=== PATIENT | male | born 1940 | race Caucasian/White ===

== ENCOUNTER 2020-12-12 19:58 | Inpatient (IN) | payer MEDICARE, OTHER ==
[2020-12-12 20:35] LABS: #Eosinphils 0.1 10x3/uL (0.0-0.5); #Monocytes 0.9 10x3/uL (0.0-1.1); #Neutrophils 11.5 10x3/uL (1.5-8.4); %Basophils 0.2 % (0.0-2.0); %Eosinophils 0.9 % (0.0-6.0); %Lymphocytes 4.6 % (18.0-47.0); %Monocytes 6.6 % (0.0-10.0); %Neutrophils 87.1 % (40.0-75.0); Hemoglobin 11.2 g/dL (13.5-17.5); Mean Corpuscular HGB CONC 31.3 g/dL (32.0-36.0); Mean Corpuscular Hemoglobin 30.2 pg (27.0-33.0); Mean Corpuscular Volume 96.5 fl (81.2-95.1); Mean Platelet Volume 9.8 fl (7.4-10.4); Platelet Count 177 10x3/uL (150-450); RBC Distribution Width 13.3 % (11.5-14.5); Red Blood Cell (RBC) Count 3.71 10x6/uL (4.32-5.72); White Blood Cell (WBC) Count 13.2 10x3/uL (3.5-10.5)
[2020-12-12 20:47] LABS: ALT (SGPT) 12 U/L (8-55); AST (SGOT) 14 U/L (5-34); Albumin 3.8 g/dL (3.4-4.8); Alkaline Phosphatase 68 U/L (40-110); Anion Gap 14 mmol/L (10-20); BUN (Urea Nitrogen) 26 mg/dL (8.4-25.7); Bilirubin, Total 0.5 mg/dL (0.2-1.2); Calc. Creatinine Clearance 0 mL/min (70-130); Calcium 8.8 mg/dL (7.8-10.44); Carbon Dioxide 23 mmol/L (23-31); Chloride 106 mmol/L (98-107); Globulin 2.4 g/dL (2.4-3.5); Glucose 141 mg/dL (83-110); Lipase 27 U/L (8-78); Protein, Total 6.2 g/dL (5.8-8.1); Sodium 138 mmol/L (136-145)
[2020-12-12] MEDS ORDERED: Mag-Al Plus 1200 MG/1200 MG/120 MG/30 ML UDCUP ONE (21:11)
[2020-12-12] MEDS ORDERED: Lidocaine Viscous Sol 2% 15 ml UD Cup ONE (21:12)
[2020-12-12 21:53] LABS: SARS-CoV-2 NAA Rapid Test Not Detected (NotDetected)
[2020-12-12] MEDS ORDERED: cefTRIAXone\\ROCEPHIN 2 GM VIAL ONE (22:31)
[2020-12-12] MEDS ORDERED: Nitroglycerin 0.4 MG TAB 1 EACH ONE (23:32)
[2020-12-12] MEDS ORDERED: Nitroglycerin 2% Ointment 1 INCH/1 GM Packet ONE (23:48)
[2020-12-13] MEDS ORDERED: Senokot S 8.6-50 MG TAB PO PRN (00:08)
[2020-12-13] MEDS ORDERED: Azithromycin 500 MG VIAL ONE (00:24)
[2020-12-13 00:50] VITALS: BMI 39.2
[2020-12-13] MEDS: Nitroglycerin 2% Ointment 1 INCH/1 GM Packet TOP SCH ×3 (05:00→23:33)
[2020-12-13 05:02] LABS: #Monocytes 0.1 10x3/uL (0.0-1.1); %Basophils 0.1 % (0.0-2.0); %Lymphocytes 3.7 % (18.0-47.0); %Monocytes 1.2 % (0.0-10.0); %Neutrophils 94.3 % (40.0-75.0); Hemoglobin 10.7 g/dL (13.5-17.5); Mean Corpuscular HGB CONC 32.3 g/dL (32.0-36.0); Mean Corpuscular Hemoglobin 30.6 pg (27.0-33.0); Mean Corpuscular Volume 94.6 fl (81.2-95.1); Mean Platelet Volume 10.2 fl (7.4-10.4); Platelet Count 169 10x3/uL (150-450); RBC Distribution Width 13.3 % (11.5-14.5); White Blood Cell (WBC) Count 9.5 10x3/uL (3.5-10.5)
[2020-12-13 05:13] LABS: Troponin I 0.026 ng/mL (< 0.028)
[2020-12-13 05:15] LABS: Anion Gap 15 mmol/L (10-20); BUN (Urea Nitrogen) 23 mg/dL (8.4-25.7); Calc. Creatinine Clearance 73 mL/min (70-130); Calcium 8.6 mg/dL (7.8-10.44); Carbon Dioxide 21 mmol/L (23-31); Chloride 109 mmol/L (98-107); Glucose 204 mg/dL (83-110); Magnesium 2.2 mg/dL (1.6-2.6); Potassium 4.8 mmol/L (3.5-5.1); Sodium 140 mmol/L (136-145)
[2020-12-13] MEDS: Arformoterol 15 MCG/2 ML NEB NEB SCH ×2 (06:45→19:40)
[2020-12-13] MEDS: Budesonide 0.5 MG/2 ML NEB NEB SCH ×2 (06:53→19:40)
[2020-12-13] MEDS: Aspirin 81 mg Enteric Coated Tablet PO SCH (08:38)
[2020-12-13] MEDS: Carvedilol 3.125 MG TAB PO SCH ×2 (08:38→17:23)
[2020-12-13] MEDS: hydrALAZINE 25 MG TAB PO SCH ×3 (08:38→20:19)
[2020-12-13] MEDS: Enoxaparin Sodium 40 MG/0.4 ML SYRINGE SC SCH (08:38)
[2020-12-13] MEDS: Furosemide 40 MG TAB PO SCH (08:38)
[2020-12-13] MEDS ORDERED: Lisinopril 5 MG TAB PO SCH (09:00)
[2020-12-13] MEDS ORDERED: Cepastat Lozenges 1 LOZ PO PRN (11:40)
[2020-12-13] MEDS ORDERED: Atorvastatin Calcium 40 MG TAB PO SCH (21:00)
[2020-12-13] MEDS ORDERED: Azithromycin 500 MG in Sodium Chloride 0.9% 250 ML 250 ML IVPB SCH (22:00)
[2020-12-13] MEDS ORDERED: cefTRIAXone\\ROCEPHIN 2 GM in Sodium Chloride 0.9% 100 ML IVPB SCH (23:00)
[2020-12-14] MEDS: Nitroglycerin 2% Ointment 1 INCH/1 GM Packet TOP SCH ×2 (06:15→14:57)
[2020-12-14] MEDS: Budesonide 0.5 MG/2 ML NEB NEB SCH (06:40)
[2020-12-14] MEDS: Arformoterol 15 MCG/2 ML NEB NEB SCH (06:50)
[2020-12-14] MEDS: Furosemide 40 MG TAB PO SCH (07:06)
[2020-12-14] MEDS ORDERED: Ketoconazole 2% Cream 15 gm Tube TOP PRN (08:00)
[2020-12-14] MEDS ORDERED: Acetaminophen 325 MG TAB PO PRN (08:02)
[2020-12-14 08:11] VITALS: TEMP 98.6
[2020-12-14 08:20] LABS: Anion Gap 13 mmol/L (10-20); BUN (Urea Nitrogen) 30 mg/dL (8.4-25.7); Calc. Creatinine Clearance 77 mL/min (70-130); Calcium 8.8 mg/dL (7.8-10.44); Carbon Dioxide 23 mmol/L (23-31); Chloride 110 mmol/L (98-107); Glucose 120 mg/dL (83-110); Potassium 4.9 mmol/L (3.5-5.1); Sodium 141 mmol/L (136-145)
[2020-12-14] MEDS ORDERED: FLUTICASONE IH SCH (09:00)
[2020-12-14] MEDS ORDERED: Vit A,C & E/Lutein/Minerals Tablet PO SCH (09:00)
[2020-12-14] MEDS ORDERED: Clopidogrel Bisulfate 75 MG TAB PO SCH (09:00)
[2020-12-14] MEDS ORDERED: [UNRECOGNIZED DRUG - OTHER] IH SCH (09:00)
[2020-12-14] MEDS ORDERED: Famotidine 20 MG TAB PO SCH (09:00)
[2020-12-14] MEDS ORDERED: Lisinopril 20 MG TAB PO SCH (09:00)
[2020-12-14] MEDS ORDERED: Ascorbic Acid 500 mg Chewable Tablet PO SCH (09:00)
[2020-12-14] MEDS ORDERED: Verapamil 80 MG TAB PO SCH ×2 (09:00→21:00)
[2020-12-14] MEDS ORDERED: SALMETEROL IH SCH (09:00)
[2020-12-14] MEDS: Aspirin 81 mg Enteric Coated Tablet PO SCH (09:36)
[2020-12-14] MEDS: hydrALAZINE 25 MG TAB PO SCH ×2 (09:37→15:05)
[2020-12-14] MEDS: Carvedilol 3.125 MG TAB PO SCH (09:37)
[2020-12-14] MEDS: Enoxaparin Sodium 40 MG/0.4 ML SYRINGE SC SCH (09:44)
[2020-12-14 12:34] VITALS: BP 143/66
[2020-12-14] MEDS ORDERED: Pravastatin Sodium 20 MG TAB PO SCH (21:00)
[2020-12-15] MEDS ORDERED: Furosemide 20 MG TAB PO SCH (09:00)
== END 2020-12-14 16:56 | disposition home health service (06) | DRG 191 ==
LOC: CSHERS 19:58 → CSHTELE 23:53 → UNDOADMIN 23:53 → CSHTELE 12-13 00:08 → UNDODISIN 12-14 16:56
PROVIDERS: ADMIT Family Medicine; ATTEND Internal Medicine
PROC: 5A09357 Assistance with Respiratory Ventilation, Less than 24 Consecutive Hours, Continuous Positive Airway Pressure (ICD-10-PCS; principal; 2020-12-13)
DX: J44.1 Chronic obstructive pulmonary disease with (acute) exacerbation (principal); J96.11 Chronic respiratory failure with hypoxia; I25.10 Atherosclerotic heart disease of native coronary artery without angina pectoris; I12.9 Hypertensive chronic kidney disease with stage 1 through stage 4 chronic kidney disease, or unspecified chronic kidney disease; G47.33 Obstructive sleep apnea (adult) (pediatric); I51.7 Cardiomegaly; E74.39 Other disorders of intestinal carbohydrate absorption; E66.9 Obesity, unspecified; N18.31 Chronic kidney disease, stage 3a; Z20.822 Contact with and (suspected) exposure to COVID-19; Z88.1 Allergy status to other antibiotic agents; Z88.2 Allergy status to sulfonamides; Z79.82 Long term (current) use of aspirin; Z79.899 Other long term (current) drug therapy; I25.2 Old myocardial infarction; Z99.81 Dependence on supplemental oxygen; Z95.5 Presence of coronary angioplasty implant and graft; Z87.891 Personal history of nicotine dependence; Z68.39 Body mass index [BMI] 39.0-39.9, adult
CPT/HCPCS: 36415; 71045; 74177; 80048; 80053; 83690; 83735; 83880; 84145; 84484; 85025; 87040; 93005; 93010; 93306; 94640; 94760; J0456; J0696; J1650; J3490; J7050; J7620; J7626; U0002

== ENCOUNTER 2021-01-09 09:10 | Inpatient (IN) | payer MEDICARE ==
[2021-01-09] MEDS ORDERED: Cefepime 2 GM VIAL ONE (09:58)
[2021-01-09] MEDS ORDERED: Vancomycin 1.5 GRAM/300 ML BAG 1.5 GM in Premix Bag 1 BAG IVPB SCH (10:00)
[2021-01-09 10:05] LABS: #Eosinphils 0.2 10x3/uL (0.0-0.5); #Monocytes 0.7 10x3/uL (0.0-1.1); #Neutrophils 4.4 10x3/uL (1.5-8.4); %Basophils 0.3 % (0.0-2.0); %Eosinophils 2.7 % (0.0-6.0); %Lymphocytes 11.8 % (18.0-47.0); %Monocytes 10.9 % (0.0-10.0); %Neutrophils 73.6 % (40.0-75.0); Hemoglobin 10.3 g/dL (13.5-17.5); Mean Corpuscular Hemoglobin 30.7 pg (27.0-33.0); Mean Corpuscular Volume 96.1 fl (81.2-95.1); Mean Platelet Volume 9.5 fl (7.4-10.4); Platelet Count 147 10x3/uL (150-450); RBC Distribution Width 13.8 % (11.5-14.5); Red Blood Cell (RBC) Count 3.35 10x6/uL (4.32-5.72)
[2021-01-09 10:18] LABS: ALT (SGPT) 17 U/L (8-55); AST (SGOT) 14 U/L (5-34); Albumin 3.6 g/dL (3.4-4.8); Alkaline Phosphatase 82 U/L (40-110); Anion Gap 12 mmol/L (10-20); BUN (Urea Nitrogen) 23 mg/dL (8.4-25.7); Bilirubin, Total 0.3 mg/dL (0.2-1.2); CK (CPK) 66 U/L (30-200); Calc. Creatinine Clearance 0 mL/min (70-130); Calcium 8.8 mg/dL (7.8-10.44); Carbon Dioxide 24 mmol/L (23-31); Chloride 108 mmol/L (98-107); Globulin 2.2 g/dL (2.4-3.5); Glucose 135 mg/dL (83-110); Potassium 4.4 mmol/L (3.5-5.1); Protein, Total 5.8 g/dL (5.8-8.1); Sodium 140 mmol/L (136-145)
[2021-01-09 10:25] LABS: SARS-CoV-2 NAA Rapid Test Not Detected (NotDetected)
[2021-01-09] MEDS ORDERED: Senokot S 8.6-50 MG TAB PO PRN (11:13)
[2021-01-09] MEDS ORDERED: Acetaminophen 325 MG TAB PO PRN (11:13)
[2021-01-09 11:45] LABS: Bilirubin Neg (Negative); Blood, Urine Negative (Negative); Clarity Clear (Clear); Glucose, Urine (Dipstick) Normal (Negative); Ketone, Urine Negative (Negative); Leukocyte 100 (Negative); Nitrite Negative (Negative); Protein, Urine (Dipstick) 30 mg/dl (Neg-Trace); Urobilinogen Normal mg/dL (Less than 2)
[2021-01-09 12:08] LABS: RBC/HPF 0-3 HPF (0-3)
[2021-01-09 12:09] LABS: Bacteria/HPF None Seen HPF (None Seen); Squamous Epithelial 0-3 HPF (0-3)
[2021-01-09] MEDS ORDERED: FLU VACC QS2021-22(65YR UP)/PF 240 MCG/0.7 ML SYRINGE IM ONE (16:30)
[2021-01-09] MEDS: Mometasone/Formoterol 200/5 60 PUFF INH SCH (19:05)
[2021-01-09] MEDS: Verapamil 80 MG TAB PO SCH (20:58)
[2021-01-09] MEDS: Lisinopril 20 MG TAB PO SCH (20:59)
[2021-01-09] MEDS: hydrALAZINE 10 MG TAB PO SCH (20:59)
[2021-01-09] MEDS ORDERED: Clobetasol 0.05% Cream 15 gm Tube TOP SCH (21:00)
[2021-01-09] MEDS: Clobetasol 0.05% Cream 15 gm Tube TOP SCH (21:00)
[2021-01-10 03:54] LABS: Anion Gap 13 mmol/L (10-20); BUN (Urea Nitrogen) 20 mg/dL (8.4-25.7); Calc. Creatinine Clearance 179 mL/min (70-130); Calcium 8.7 mg/dL (7.8-10.44); Carbon Dioxide 21 mmol/L (23-31); Chloride 111 mmol/L (98-107); Glucose 130 mg/dL (83-110); Potassium 4.4 mmol/L (3.5-5.1); Sodium 141 mmol/L (136-145)
[2021-01-10 05:38] LABS: Hemoglobin 9.1 g/dL (13.5-17.5); Mean Corpuscular HGB CONC 32.3 g/dL (32.0-36.0); Mean Corpuscular Volume 95.9 fl (81.2-95.1); Mean Platelet Volume 9.6 fl (7.4-10.4); Platelet Count 148 10x3/uL (150-450); RBC Distribution Width 13.9 % (11.5-14.5); Red Blood Cell (RBC) Count 2.94 10x6/uL (4.32-5.72); White Blood Cell (WBC) Count 4.7 10x3/uL (3.5-10.5)
[2021-01-10 06:31] LABS: Eosinophils 4 % (0-10); Lymphocytes 12 % (21-51); Monocytes 17 % (0-10); Neutrophil 66 % (42-75)
[2021-01-10 06:32] LABS: Platelet Morphology Comment Appears Adequate; RBC Morphology Normal
[2021-01-10 06:41] LABS: MDiff Complete? YES
[2021-01-10] MEDS: Mometasone/Formoterol 200/5 60 PUFF INH SCH ×2 (07:55→19:14)
[2021-01-10] MEDS: Lisinopril 20 MG TAB PO SCH ×2 (08:05→20:37)
[2021-01-10] MEDS: Furosemide 40 MG TAB PO SCH ×2 (08:05→08:06)
[2021-01-10] MEDS: hydrALAZINE 10 MG TAB PO SCH ×3 (08:05→20:34)
[2021-01-10] MEDS: Verapamil 80 MG TAB PO SCH ×3 (08:05→20:36)
[2021-01-10] MEDS: Enoxaparin Sodium 40 MG/0.4 ML SYRINGE SC SCH (08:05)
[2021-01-10] MEDS: Clobetasol 0.05% Cream 15 gm Tube TOP SCH (08:05)
[2021-01-10 10:11] VITALS: BMI 40.9
[2021-01-10] MEDS: CEFAZOLIN 2 GM in Premix Bag 1 BAG IVPB SCH ×2 (11:27→18:38)
[2021-01-11 01:20] LABS: Hemoglobin A1c 5.8 % (4.0-6.0)
[2021-01-11] MEDS: CEFAZOLIN 2 GM in Premix Bag 1 BAG IVPB SCH (03:50)
[2021-01-11 05:14] LABS: Phosphorus 2.8 mg/dL (2.3-4.7)
[2021-01-11 05:17] LABS: Anion Gap 11 mmol/L (10-20); BUN (Urea Nitrogen) 21 mg/dL (8.4-25.7); Calc. Creatinine Clearance 73 mL/min (70-130); Calcium 8.6 mg/dL (7.8-10.44); Carbon Dioxide 25 mmol/L (23-31); Chloride 109 mmol/L (98-107); Glucose 124 mg/dL (83-110); Potassium 3.9 mmol/L (3.5-5.1); Sodium 141 mmol/L (136-145)
[2021-01-11 05:27] LABS: Hemoglobin 8.7 g/dL (13.5-17.5); Mean Corpuscular HGB CONC 31.8 g/dL (32.0-36.0); Mean Corpuscular Hemoglobin 30.9 pg (27.0-33.0); Mean Corpuscular Volume 97.2 fl (81.2-95.1); Mean Platelet Volume 9.9 fl (7.4-10.4); Platelet Count 152 10x3/uL (150-450); RBC Distribution Width 13.7 % (11.5-14.5); Red Blood Cell (RBC) Count 2.82 10x6/uL (4.32-5.72)
[2021-01-11 05:28] LABS: MDiff Complete? YES
[2021-01-11 05:58] LABS: Eosinophils 4 % (0-10); Lymphocytes 21 % (21-51); Monocytes 18 % (0-10); Neutrophil 57 % (42-75)
[2021-01-11 05:59] LABS: Hypochromia MODERATE=16-30 cells (100X) (0-5/hpf); Microcytosis SLIGHT = 6-15 cells (100X) (0-5/hpf); Platelet Morphology Comment Appears Adequate
[2021-01-11] MEDS: Mometasone/Formoterol 200/5 60 PUFF INH SCH (07:34)
[2021-01-11 08:06] VITALS: BP 175/74; TEMP 98.4
[2021-01-11] MEDS: hydrALAZINE 10 MG TAB PO SCH (08:46)
[2021-01-11] MEDS: Verapamil 80 MG TAB PO SCH (08:46)
[2021-01-11] MEDS: Enoxaparin Sodium 40 MG/0.4 ML SYRINGE SC SCH (08:46)
[2021-01-11] MEDS: Lisinopril 20 MG TAB PO SCH (08:46)
[2021-01-11 11:25] LABS: Cardiac Risk 2.7 (Less than 4.5)
== END 2021-01-11 10:22 | disposition home or self-care (01) | DRG 603 ==
LOC: CSHERS 09:10 → CSHTELE 11:40 → INTOOBSV 11:40 → OBSVTOIN 01-10 19:03
PROVIDERS: ADMIT Family Medicine; ATTEND Family Medicine
DX: L03.116 Cellulitis of left lower limb (principal); I13.0 Hypertensive heart and chronic kidney disease with heart failure and stage 1 through stage 4 chronic kidney disease, or unspecified chronic kidney disease; I50.32 Chronic diastolic (congestive) heart failure; Z68.41 Body mass index [BMI] 40.0-44.9, adult; Z20.822 Contact with and (suspected) exposure to COVID-19; L03.115 Cellulitis of right lower limb; J44.9 Chronic obstructive pulmonary disease, unspecified; N18.32 Chronic kidney disease, stage 3b; I87.2 Venous insufficiency (chronic) (peripheral); A46 Erysipelas; E66.01 Morbid (severe) obesity due to excess calories; Z88.2 Allergy status to sulfonamides; Z88.1 Allergy status to other antibiotic agents; Z79.82 Long term (current) use of aspirin; Z79.899 Other long term (current) drug therapy; Z79.02 Long term (current) use of antithrombotics/antiplatelets; I25.2 Old myocardial infarction; Z95.5 Presence of coronary angioplasty implant and graft; Z87.891 Personal history of nicotine dependence
CPT/HCPCS: 36415; 36416; 71045; 80048; 80053; 80061; 81003; 81015; 82550; 83036; 83605; 83735; 83880; 84100; 84484; 85025; 86140; 87040; 87086; 93005; 94640; 94664; 94760; 96365; 96367; 96372; 96375; G0378; J0690; J0692; J1650; J3370; J7620; U0002

== ENCOUNTER 2021-10-04 13:41 | Emergency (ER) | payer OTHER ==
[2021-10-04 14:24] LABS: Bilirubin Neg (Negative); Blood, Urine Negative (Negative); Clarity Clear (Clear); Glucose, Urine (Dipstick) Normal (Negative); Ketone, Urine Negative (Negative); Leukocyte 100 (Negative); Nitrite Negative (Negative); Protein, Urine (Dipstick) 30 mg/dl (Neg-Trace); Specific Gravity, Urine 1.005 (1.002-1.036); Urobilinogen Normal mg/dL (Less than 2); pH, Urine 6.5 (5.0-9.0)
[2021-10-04 14:30] LABS: Bacteria/HPF Rare-Few HPF (None Seen); RBC/HPF 0-3 HPF (0-3)
[2021-10-04 14:31] LABS: #Eosinphils 0.2 10x3/uL (0.0-0.5); #Monocytes 1.2 10x3/uL (0.0-1.1); #Neutrophils 6.6 10x3/uL (1.5-8.4); %Basophils 0.3 % (0.0-2.0); %Eosinophils 1.6 % (0.0-6.0); %Lymphocytes 15.5 % (18.0-47.0); %Monocytes 12.5 % (0.0-10.0); Hemoglobin 10.5 g/dL (13.5-17.5); Mean Corpuscular HGB CONC 32.1 g/dL (32.0-36.0); Mean Corpuscular Hemoglobin 30.7 pg (27.0-33.0); Mean Corpuscular Volume 95.6 fl (81.2-95.1); Mean Platelet Volume 9.6 fl (7.4-10.4); Platelet Count 184 10x3/uL (150-450); RBC Distribution Width 13.3 % (11.5-14.5); Red Blood Cell (RBC) Count 3.42 10x6/uL (4.32-5.72); White Blood Cell (WBC) Count 9.5 10x3/uL (3.5-10.5)
[2021-10-04 14:43] LABS: ALT (SGPT) 14 U/L (8-55); AST (SGOT) 12 U/L (5-34); Albumin 3.7 g/dL (3.4-4.8); Alkaline Phosphatase 79 U/L (40-110); Anion Gap 14 mmol/L (10-20); BUN (Urea Nitrogen) 42 mg/dL (8.4-25.7); Bilirubin, Total 0.3 mg/dL (0.2-1.2); Calc. Creatinine Clearance 0 mL/min (70-130); Calcium 10.3 mg/dL (7.8-10.44); Carbon Dioxide 25 mmol/L (23-31); Chloride 103 mmol/L (98-107); Estimated GFR 36; Globulin 3.2 g/dL (2.4-3.5); Glucose 116 mg/dL (83-110); Magnesium 2.8 mg/dL (1.6-2.6); Potassium 4.8 mmol/L (3.5-5.1); Protein, Total 6.9 g/dL (5.8-8.1); Sodium 137 mmol/L (136-145)
== END 2021-10-04 17:01 | disposition home or self-care (01) ==
LOC: CSHERS 13:41
DX: J44.1 Chronic obstructive pulmonary disease with (acute) exacerbation (principal); I51.7 Cardiomegaly; R60.0 Localized edema; E11.22 Type 2 diabetes mellitus with diabetic chronic kidney disease; I12.9 Hypertensive chronic kidney disease with stage 1 through stage 4 chronic kidney disease, or unspecified chronic kidney disease; N18.9 Chronic kidney disease, unspecified; Z87.891 Personal history of nicotine dependence
CPT/HCPCS: 36415; 71045; 80053; 81003; 81015; 83605; 83735; 84443; 84484; 85025; 93005; 94760

== ENCOUNTER 2021-12-03 11:32 | Emergency (ER) | payer OTHER ==
[2021-12-03 12:10] LABS: Hemoglobin 10.5 g/dL (13.5-17.5); Mean Corpuscular HGB CONC 32.9 g/dL (32.0-36.0); Mean Corpuscular Hemoglobin 31.3 pg (27.0-33.0); Mean Corpuscular Volume 94.9 fl (81.2-95.1); Platelet Count 201 10x3/uL (150-450); RBC Distribution Width 12.7 % (11.5-14.5); Red Blood Cell (RBC) Count 3.36 10x6/uL (4.32-5.72)
[2021-12-03 12:11] LABS: MDiff Complete? YES; Manual Diff?? YES
[2021-12-03 12:27] LABS: Eosinophils 2 % (0-10); Lymphocytes 14 % (21-51); Monocytes 11 % (0-10); Neutrophil 71 % (42-75); Reactive Lymphocytes 2 % (0-10)
[2021-12-03 12:28] LABS: Platelet Morphology Comment Appears Adequate
[2021-12-03 12:30] LABS: ALT (SGPT) 7 U/L (8-55); AST (SGOT) 13 U/L (5-34); Albumin 3.9 g/dL (3.4-4.8); Alkaline Phosphatase 88 U/L (40-110); Anion Gap 13 mmol/L (10-20); BUN (Urea Nitrogen) 38 mg/dL (8.4-25.7); Bilirubin, Total 0.3 mg/dL (0.2-1.2); Calc. Creatinine Clearance 0 mL/min (70-130); Calcium 9.7 mg/dL (7.8-10.44); Carbon Dioxide 24 mmol/L (23-31); Chloride 104 mmol/L (98-107); Estimated GFR 38; Globulin 2.7 g/dL (2.4-3.5); Glucose 125 mg/dL (83-110); Potassium 4.6 mmol/L (3.5-5.1); Protein, Total 6.6 g/dL (5.8-8.1); Sodium 136 mmol/L (136-145)
== END 2021-12-03 14:51 | disposition home or self-care (01) ==
LOC: CSHERS 11:32
DX: R00.1 Bradycardia, unspecified (principal); I44.0 Atrioventricular block, first degree; I45.4 Nonspecific intraventricular block; I10 Essential (primary) hypertension; E11.9 Type 2 diabetes mellitus without complications; J44.9 Chronic obstructive pulmonary disease, unspecified; E66.9 Obesity, unspecified; Z87.891 Personal history of nicotine dependence; Z79.82 Long term (current) use of aspirin; Z79.899 Other long term (current) drug therapy
CPT/HCPCS: 36415; 71045; 80053; 83880; 84484; 85025; 93005; 94760

== ENCOUNTER 2022-06-17 09:37 | Emergency (ER) | payer OTHER ==
[2022-06-17] MEDS ORDERED: Morphine 4 MG/ML VIAL ONE (10:39)
== END 2022-06-17 10:55 | disposition home or self-care (01) ==
LOC: CSHERS 09:37
DX: M25.561 Pain in right knee (principal); E11.9 Type 2 diabetes mellitus without complications; I10 Essential (primary) hypertension; J44.9 Chronic obstructive pulmonary disease, unspecified; Z87.891 Personal history of nicotine dependence
CPT/HCPCS: 93005; 93010; 96372; 99283; J2270

== ENCOUNTER 2022-07-29 10:28 | Emergency (ER) | payer OTHER ==
[2022-07-29 11:13] LABS: Bilirubin Neg (Negative); Blood, Urine 10 (Negative); Clarity Clear (Clear); Glucose, Urine (Dipstick) Normal (Negative); Ketone, Urine Negative (Negative); Leukocyte 25 (Negative); Nitrite Negative (Negative); Protein, Urine (Dipstick) 30 mg/dl (Neg-Trace); Specific Gravity, Urine 1.015 (1.005-1.030); Urobilinogen Normal mg/dL (Less than 2)
[2022-07-29 11:27] LABS: #Eosinphils 0.2 10x3/uL (0.0-0.5); #Neutrophils 5.6 10x3/uL (1.5-8.4); %Basophils 0.4 % (0.0-2.0); %Eosinophils 2.8 % (0.0-6.0); %Lymphocytes 14.6 % (18.0-47.0); %Monocytes 11.9 % (0.0-10.0); %Neutrophils 69.3 % (40.0-75.0); Hemoglobin 11.7 g/dL (13.5-17.5); Mean Corpuscular HGB CONC 32.7 g/dL (32.0-36.0); Mean Corpuscular Hemoglobin 30.2 pg (27.0-33.0); Mean Corpuscular Volume 92.3 fl (81.2-95.1); Mean Platelet Volume 9.7 fl (7.4-10.4); Platelet Count 238 10x3/uL (150-450); RBC Distribution Width 13.8 % (11.5-14.5); Red Blood Cell (RBC) Count 3.88 10x6/uL (4.32-5.72); White Blood Cell (WBC) Count 8.1 10x3/uL (3.5-10.5)
[2022-07-29] MEDS ORDERED: Furosemide 40 MG/4 ML VIAL ONE (11:32)
[2022-07-29 11:35] LABS: CAUTI Indications for Culture Dysuria,urgency,freq
[2022-07-29 11:36] LABS: Bacteria/HPF None Seen HPF (None Seen); Renal Epithelial 0-3 HPF (None Seen); Squamous Epithelial None Seen HPF (0-3)
[2022-07-29 11:37] LABS: Urine Culture Reflex No No
[2022-07-29 11:45] LABS: ALT (SGPT) 13 U/L (8-55); Albumin 3.9 g/dL (3.4-4.8); Alkaline Phosphatase 97 U/L (40-110); Anion Gap 14 mmol/L (10-20); BUN (Urea Nitrogen) 31 mg/dL (8.4-25.7); Bilirubin, Total 0.3 mg/dL (0.2-1.2); Calc. Creatinine Clearance 0 mL/min (70-130); Calcium 10.8 mg/dL (7.8-10.44); Carbon Dioxide 25 mmol/L (23-31); Chloride 104 mmol/L (98-107); Estimated GFR 50; Globulin 3.7 g/dL (2.4-3.5); Glucose 106 mg/dL (83-110); Potassium 4.4 mmol/L (3.5-5.1); Protein, Total 7.6 g/dL (5.8-8.1); Sodium 139 mmol/L (136-145)
[2022-07-29 11:46] LABS: AST (SGOT) 22 U/L (5-34)
== END 2022-07-29 12:21 | disposition home or self-care (01) ==
LOC: CSHERS 10:28
DX: R60.9 Edema, unspecified (principal); I11.0 Hypertensive heart disease with heart failure; I50.9 Heart failure, unspecified; E11.9 Type 2 diabetes mellitus without complications; E66.9 Obesity, unspecified; J44.9 Chronic obstructive pulmonary disease, unspecified; Z87.891 Personal history of nicotine dependence; Z79.899 Other long term (current) drug therapy
CPT/HCPCS: 71045; 80053; 81001; 83880; 84484; 85025; 93005; 96374; J1940

== ENCOUNTER 2022-10-21 08:53 | Inpatient (IN) | payer MEDICARE, OTHER ==
[2022-10-21] MEDS ORDERED: fentaNYL 50 mcg/mL 1 mL Vial ONE ×2 (09:30→12:00)
[2022-10-21] MEDS ORDERED: Ondansetron PF 4 MG/2 ML Vial ONE (09:31)
[2022-10-21 09:58] LABS: #Monocytes 1.3 10x3/uL (0.0-1.1); #Neutrophils 18.5 10x3/uL (1.5-8.4); %Basophils 0.1 % (0.0-2.0); %Lymphocytes 2.7 % (18.0-47.0); %Monocytes 6.4 % (0.0-10.0); %Neutrophils 89.8 % (40.0-75.0); Hematocrit 32.6 % (38.8-50.0); Hemoglobin 10.7 g/dL (13.5-17.5); Mean Corpuscular HGB CONC 32.8 g/dL (32.0-36.0); Mean Corpuscular Hemoglobin 30.5 pg (27.0-33.0); Mean Corpuscular Volume 92.9 fl (81.2-95.1); Mean Platelet Volume 9.5 fl (7.4-10.4); Platelet Count 161 10x3/uL (150-450); RBC Distribution Width 13.5 % (11.5-14.5); Red Blood Cell (RBC) Count 3.51 10x6/uL (4.32-5.72); White Blood Cell (WBC) Count 20.6 10x3/uL (3.5-10.5)
[2022-10-21 10:27] LABS: ALT (SGPT) 11 U/L (8-55); AST (SGOT) 14 U/L (5-34); Albumin 3.6 g/dL (3.4-4.8); Alkaline Phosphatase 65 U/L (40-110); Anion Gap 17 mmol/L (10-20); BUN (Urea Nitrogen) 73 mg/dL (8.4-25.7); Bilirubin, Total 0.8 mg/dL (0.2-1.2); Calc. Creatinine Clearance 0 mL/min (70-130); Carbon Dioxide 23 mmol/L (23-31); Chloride 100 mmol/L (98-107); Estimated GFR 20; Globulin 2.5 g/dL (2.4-3.5); Glucose 182 mg/dL (83-110); Lipase 25 U/L (8-78); Potassium 4.9 mmol/L (3.5-5.1); Protein, Total 6.1 g/dL (5.8-8.1); Sodium 135 mmol/L (136-145)
[2022-10-21 10:30] LABS: Troponin I 0.025 ng/mL (< 0.028)
[2022-10-21 11:26] LABS: Bilirubin Neg (Negative); Blood, Urine 250 (Negative); Clarity Cloudy (Clear); Glucose, Urine (Dipstick) Normal (Negative); Ketone, Urine Negative (Negative); Leukocyte 500 (Negative); Nitrite Positive (Negative); Protein, Urine (Dipstick) 100 mg/dl (Neg-Trace); Specific Gravity, Urine 1.015 (1.005-1.030); Urobilinogen Normal mg/dL (Less than 2)
[2022-10-21] MEDS ORDERED: cefTRIAXone (ROCEPHIN) 2 GM VIAL ONE (11:39)
[2022-10-21 11:42] LABS: Bacteria/HPF 4+ HPF (None Seen); CAUTI Indications for Culture Dysuria,urgency,freq; RBC/HPF Greater than 50 HPF (0-3); Transitional Epithelial 0-3 HPF (None Seen); WBC/HPF Greater Than 50 HPF (0-3)
[2022-10-21 11:43] LABS: Urine Culture Reflex Yes Yes
[2022-10-21] MEDS ORDERED: Dextrose 50% Abboject 50 ML SYRINGE SLOW IVP PRN (12:14)
[2022-10-21] MEDS ORDERED: Guaifenesin DM 100-10/5 ML UDCUP PO PRN (12:14)
[2022-10-21] MEDS ORDERED: Ondansetron PF 4 MG/2 ML Vial IVP PRN (12:14)
[2022-10-21] MEDS ORDERED: Glucagon 1 MG/ML KIT IM PRN (12:14)
[2022-10-21] MEDS ORDERED: Acetaminophen 325 MG TAB PO PRN (12:14)
[2022-10-21] MEDS ORDERED: Calcium Carbonate 500 MG ChewTAB PO PRN (12:14)
[2022-10-21] MEDS ORDERED: Dextrose 5% in Water 1,000 ML IV PRN (12:14)
[2022-10-21] MEDS ORDERED: Piperacillin/Tazobactam 3.375 GM in Sodium Chloride 0.9% 100 ML IVPB SCH ×3 (12:15→20:00)
[2022-10-21] MEDS ORDERED: Sodium Chloride 0.9% 1,000 ML IV SCH (12:15)
[2022-10-21] MEDS ORDERED: HumaLOG 300 UNITS/3 ML VIAL SC PRN (12:19)
[2022-10-21 14:26] VITALS: BMI 37.2
[2022-10-21] MEDS ORDERED: Piperacillin/Tazobactam 3.375 GM VIAL ONE ×2 (14:53→19:56)
[2022-10-21] MEDS ORDERED: VANCOMYCIN 1.75 GM/350 ML BAG 1.75 GM in Premix Bag 1 BAG IVPB SCH (15:30)
[2022-10-21 16:34] LABS: Creatinine, Urine 121.82 mg/dL (63-166)
[2022-10-21] MEDS ORDERED: Carvedilol 3.125 MG TAB PO SCH (17:00)
[2022-10-21] MEDS ORDERED: Carvedilol 3.125 MG TAB ONE (17:06)
[2022-10-21] MEDS ORDERED: Morphine 2 MG/ML VIAL ONE (17:31)
[2022-10-21] MEDS ORDERED: Morphine 2 MG/ML VIAL SLOW IVP PRN (17:40)
[2022-10-21 18:12] VITALS: BP 143/52; TEMP 99.4
[2022-10-21] MEDS ORDERED: Vancomycin Dose by Levels Sliding Scale (Wt > 99) FS PRN (18:12)
[2022-10-21] MEDS ORDERED: Ipratropium/Albuterol 3 ML NEB NEB SCH (18:30)
[2022-10-21] MEDS ORDERED: Ipratropium/Albuterol 3 ML NEB ONE (20:30)
[2022-10-21] MEDS ORDERED: Simvastatin 10 MG TAB PO SCH (21:00)
[2022-10-21] MEDS ORDERED: Senokot S 8.6-50 MG TAB PO SCH (21:00)
[2022-10-22] MEDS ORDERED: Vit A,C & E/Lutein/Minerals Tablet PO SCH (09:00)
== END 2022-10-21 22:59 | disposition short-term general hospital (02) | DRG 872 ==
LOC: CSHERS 08:53 → CSHERHOLD 12:14
PROVIDERS: ADMIT Internal Medicine; ATTEND Internal Medicine
DX: A41.9 Sepsis, unspecified organism (principal); J96.11 Chronic respiratory failure with hypoxia; I13.0 Hypertensive heart and chronic kidney disease with heart failure and stage 1 through stage 4 chronic kidney disease, or unspecified chronic kidney disease; N30.01 Acute cystitis with hematuria; N17.9 Acute kidney failure, unspecified; J44.9 Chronic obstructive pulmonary disease, unspecified; I25.10 Atherosclerotic heart disease of native coronary artery without angina pectoris; G47.33 Obstructive sleep apnea (adult) (pediatric); E66.9 Obesity, unspecified; N18.9 Chronic kidney disease, unspecified; N20.0 Calculus of kidney; I73.9 Peripheral vascular disease, unspecified; M19.90 Unspecified osteoarthritis, unspecified site; Z85.840 Personal history of malignant neoplasm of eye; Z96.652 Presence of left artificial knee joint; Z98.890 Other specified postprocedural states; Z87.891 Personal history of nicotine dependence; Z88.2 Allergy status to sulfonamides; Z88.8 Allergy status to other drugs, medicaments and biological substances; Z79.899 Other long term (current) drug therapy
CPT/HCPCS: 36415; 36416; 74176; 80053; 81001; 82570; 83605; 83690; 83880; 84145; 84156; 84300; 84484; 84540; 85025; 87040; 87077; 87086; 87186; 93005; 94640; J0696; J2272; J2405; J2543; J3010; J3370; J3490; J7050; J7620